=== PATIENT | female | born 1980 | race American Indian/Alaskan Native ===

== ENCOUNTER 2016-08-08 04:42 | Emergency (ER) | payer SELFPAY ==
[2016-08-08] MEDS ORDERED: NACL 0.9% 1000 ML 1,000 ML IV ONE (04:51)
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
[2016-08-08 05:24] LABS: Basophils % (Auto) 0.4 % (0.0-1.8); Eosinophils % (Auto) 0.5 % (0.0-4.3); Hematocrit 43.4 % (30.3-42.9); Hemoglobin 14.4 gm/dl (10.1-14.3); Mean Corpuscular HGB Conc 33 % (30-34); Mean Corpuscular Hemoglobin 30 pg (28-32); Mean Corpuscular Volume 91 fl (79-97); Platelet Count 181 K/mm3 (140-440); Red Blood Count 4.77 M/mm3 (3.65-5.03); Red Cell Distribution Width 13.3 % (13.2-15.2); White Blood Count 12.3 K/mm3 (4.5-11.0)
[2016-08-08 05:32] LABS: INR 0.94 (0.87-1.13)
[2016-08-08] MEDS ORDERED: GEODON IM ONE (05:42)
[2016-08-08] MEDS ORDERED: WATER FOR INJ (PF) 10 ML ONE (05:43)
[2016-08-08] MEDS ORDERED: GEODON IM STA (05:44)
[2016-08-08 05:46] LABS: Alanine Aminotransferase 18 units/L (7-56); Albumin 4.5 g/dL (3.9-5); Albumin/Globulin Ratio 1.5 %; Alkaline Phosphatase 64 units/L (35-129); Anion Gap 17 mmol/L; Bilirubin,Total 0.3 mg/dL (0.1-1.2); Blood Urea Nitrogen 7 mg/dL (7-17); Carbon Dioxide 26 mmol/L (22-30); Chloride 103.3 mmol/L (98-107); Creatine Kinase 376 units/L (30-135); Glucose 103 mg/dL (65-100); Potassium 3.6 mmol/L (3.6-5.0); Sodium 143 mmol/L (137-145); Total Protein 7.5 g/dL (6.3-8.2)
--- NOTE | 2016-08-08 06:38 | Cat Scan Report ---
FINAL REPORT PROCEDURE: CT HEAD/BRAIN WO CON TECHNIQUE: Computerized tomography of the head was performed without contrast material. HISTORY: Trauma COMPARISON: No prior studies are available for comparison. FINDINGS: Skull and scalp: There is right periorbital soft tissue swelling.. There is no skull fracture. CT of the facial bones demonstrates a right inferior orbital wall fracture. This is not visible on CT of the head. Paranasal sinuses: There is dense fluid in the right maxillary sinus.. Ventricles and subarachnoid spaces: Normal. Cerebrum: No evidence of hemorrhage, acute infarction or mass . Cerebellum and brainstem: No evidence of hemorrhage, acute infarction or mass. Vasculature: Normal. Comments: None. IMPRESSION: There is no intracranial hemorrhage. There is right periorbital soft tissue swelling.. There is no skull fracture. CT of the facial bones demonstrates a right inferior orbital wall fracture. There is dense fluid in the right maxillary sinus..
--- NOTE | 2016-08-08 06:48 | Cat Scan Report ---
FINAL REPORT PROCEDURE: CT FACIAL BONES WO CON TECHNIQUE: Computerized tomography of the facial bones and soft tissues with axial and coronal sections performed from the cranial aspect of the frontal sinuses to the caudal portion of the mandible without contrast material. HISTORY: Trauma COMPARISON: No prior studies are available for comparison. FINDINGS: There is a focal defect at the floor of the right orbit consistent with a fracture. The orbital carroll are otherwise intact. There is right periorbital and facial soft tissue swelling. The globes, optic nerves and extraocular muscles are intact. There blood in the right maxillary sinus. The paranasal sinuses are otherwise clear. The mandible and temporal mandibular joints are intact. Zygomatic arches are intact. Nasal bone and anterior maxillary spine are intact.. IMPRESSION: There is a focal defect at the floor of the right orbit consistent with a fracture. There is right periorbital and facial soft tissue swelling. There blood in the right maxillary sinus.
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
--- NOTE | 2016-08-08 06:57 | Cat Scan Report ---
FINAL REPORT PROCEDURE: CT CERVICAL SPINE WO CON TECHNIQUE: Computerized tomography of the cervical spine was performed from the skull base to T1 without contrast material. HISTORY: Trauma COMPARISON: No prior studies are available for comparison. FINDINGS: C1-2: No significant abnormality. C2-3: No significant abnormality. C3-4: No significant abnormality. C4-5: No significant abnormality. C5-6: No significant abnormality. C6-7: No significant abnormality. C7-T1: No significant abnormality. Other: Skull base and foramen magnum are intact. Cervical vertebrae are intact. There are no fractures or malalignments. Intervertebral disc spaces are normal. Facet joints are intact. The prevertebral soft tissues are normal in thickness.. IMPRESSION: No significant abnormality.
[2016-08-08] MEDS ORDERED: MORPHINE IV ONE (07:04)
[2016-08-08] MEDS ORDERED: ZOFRAN IV ONE (07:04)
[2016-08-08] MEDS ORDERED: TYLENOL PO ONE (07:15)
--- NOTE | 2016-08-08 07:41 | XRay Report ---
AP PELVIS: AP view of the pelvis shows normal pelvic contour and soft tissues. The hips are symmetric and within normal limits as are the sacroiliac joints. IMPRESSION: Normal pelvis. Portable supine chest : An AP portable view of the chest demonstrates a normal cardiac contour considering the limits of this technique. The lungs are clear with no evidence of infiltrate, fluid or failure. IMPRESSION: Normal portable chest.
--- NOTE | 2016-08-08 09:25 | XRay Report ---
RIGHT ANKLE: The bones are well mineralized with normal bony contours and joint alignment. No fractures or destructive changes are noted and the adjacent soft tissues are normal. IMPRESSION: Normal study.
--- NOTE | 2016-08-08 09:59 | XRay Report ---
Left ankle: Routine views demonstrate swelling over the medial malleolus as well as dorsal swelling near the Achilles tendon. There is no evidence of acute fracture or displacement of the bony structures and the joints are intact. 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 There is a mild convex deformity of the talus adjacent to the medial malleolus however this appears chronic. Impressions: 1. Nonspecific swelling. 2. Nonacute bony findings as described.
[2016-08-08 10:40] VITALS: BP 105/56
== END 2016-08-08 10:35 | disposition home or self-care (01) ==
LOC: ED 04:42
DX: S02.30XA Fracture of orbital floor, unspecified side, initial encounter for closed fracture (principal); G44.319 Acute post-traumatic headache, not intractable; M25.572 Pain in left ankle and joints of left foot; F10.120 Alcohol abuse with intoxication, uncomplicated; F17.200 Nicotine dependence, unspecified, uncomplicated; V49.49XA Driver injured in collision with other motor vehicles in traffic accident, initial encounter; Y93.9 Activity, unspecified; Y92.9 Unspecified place or not applicable; Y99.9 Unspecified external cause status
CPT/HCPCS: 36415; 70450; 70486; 71010; 72125; 72170; 73610; 80053; 82550; 84703; 85025; 85610; 93005; 93010; 96361; 96372; 96374; 96375; 99285; G0480; J2270; J2405; J3486; J7030; 80320